=== PATIENT | male | born 1995 | race Caucasian/White ===

== ENCOUNTER 2020-04-03 16:25 | Emergency (ER) | payer OTHER ==
[2020-04-03] MEDS ORDERED: NORCO 5-325 TA1 EACH PO ×2 (21:19→21:20)
== END 2020-04-03 22:04 | disposition home or self-care (01) ==
LOC: FER 16:25
DX: S52.124A Nondisplaced fracture of head of right radius, initial encounter for closed fracture (principal); M25.531 Pain in right wrist; F17.210 Nicotine dependence, cigarettes, uncomplicated; W11.XXXA Fall on and from ladder, initial encounter
CPT/HCPCS: 73080; 73090; 73110

== ENCOUNTER 2020-07-26 16:38 | Emergency (ER) | payer OTHER ==
[~2020-07-26 16:38] MED LIST: NORCO 5-325 TA1 EACH PO
[2020-07-26 17:47] LABS: BASOPHIL 0.4 % (0-2); EOSINOPHIL 0.7 % (0-5); HCT 48.5 % (42.0-52.0); HGB 16.9 g/dl (13.2-18.0); LYMPHOCYTE 8.2 % (15-48); MCH 29.8 pg (25.0-31.0); MCHC 34.8 g/dL (32.0-36.0); MCV 85.4 fL (78.0-100.0); MONOCYTE 6.4 % (0-12); NEUTROPHIL 83.8 % (41-80); NRBC 0; PLT 254 K/uL (150-400); RBC 5.68 M/uL (4.70-6.00)
[2020-07-26 17:48] LABS: AMPHETAMINES NEGATIVE (NEGATIVE); BARBITURATES NEGATIVE (NEGATIVE); BILIRUBIN NEGATIVE (NEGATIVE); BLOOD NEGATIVE Ery/uL (NEGATIVE); CLARITY CLEAR (CLEAR); COLOR YELLOW (YELLOW); ECSTASY (MDMA) NEGATIVE (NEGATIVE); GLUCOSE (U) NORMAL (NORMAL); LEUKOCYTES NEGATIVE Leu/uL (NEGATIVE); MARIJUANA (THC) NEGATIVE (NEGATIVE); METHADONE NEGATIVE (NEGATIVE); NITRITE NEGATIVE (NEGATIVE); OPIATES POSITIVE (NEGATIVE); OXYCODONE NEGATIVE (NEGATIVE); PROTEIN NEGATIVE (NEGATIVE); SPECIFIC GRAVITY 1.025 (1.001-1.030)
[2020-07-26 18:22] LABS: ALBUMIN 4.2 g/dL (3.4-5.0); BILIRUBIN - TOTAL 0.6 mg/dL (0.2-1.0); BUN/CREAT RATIO (CALC) 14.4 RATIO; CREATININE 1.04 mg/dL (0.67-1.17); GLOBULIN (CALCULATION) 3.8 g/dL; POTASSIUM 4.3 mmol/L (3.5-5.1)
[2020-07-26 18:50] LABS: CORONAVIRUS 2019 SARS-COV-2 NEGATIVE (NEGATIVE); INFLUENZA A NAA NEGATIVE (NEGATIVE)
[2020-07-26] MEDS ORDERED: ZOFRAN4 M1 PO (19:16)
== END 2020-07-26 20:00 | disposition home or self-care (01) ==
LOC: FER 16:38
PROVIDERS: Nurse Practitioner Family
DX: B34.9 Viral infection, unspecified (principal); F17.210 Nicotine dependence, cigarettes, uncomplicated; Z20.822 Contact with and (suspected) exposure to COVID-19
CPT/HCPCS: 36415; 80053; 80305; 81003; 85025; J2405; J7030; U0002